=== PATIENT | male | born 1990 | race Caucasian/White ===

== ENCOUNTER 2017-09-11 12:08 | Emergency (ER) | payer SELFPAY ==
[~2017-09-11] VITALS: Ht 182.9 cm; Wt 93.8 kg
[2017-09-11 12:10] VITALS: BP 139/92; PULSE 70; RESP 20; TEMP 97.7; O2SAT 100
[2017-09-11] MEDS ORDERED: MORP1CAP64 PO (12:28)
[2017-09-11] MEDS ORDERED: SODIUM CHLOR 0.9% 1000 ML INJ 1,000 ML IV SCH (12:31)
--- NOTE | 2017-09-11 12:33 | PD ---
HPI Chief Complaint: Abdominal Pain Time Seen by Provider: 12:21 Travel History International Travel<30 days: No Contact w/Intl Traveler<30days: No Traveled to known affect area: No History of Present Illness HPI This is a 27-year-old male who presents to the emergency department with acute onset epigastric abdominal pain, sharp and stabbing this morning at 9:30 AM, nonradiating, severe. He denies any associated nausea, vomiting, fevers, chills or diarrhea. He has never had pain like this before. He tried to eat but it made it worse. He took 2 Gas-X which did not improve the pain. He denies any alcohol use. He does smoke marijuana and he takes 60 mg extended release morphine twice a day for chronic back pain. He did take his morphine this morning. He has never had pain like this before. He has never had abdominal surgery. PFSH Past Medical History Diminished Hearing: No Musculoskeletal: Yes (Slipped discs ) Tetanus Vaccination: Unknown Influenza Vaccination: No ?: Not Past Surgical History Tonsillectomy: Yes Social History Alcohol Use: No Tobacco Use: Yes (2 05/15 PPD) Substance Use: Yes (Marijuana) Allergies-Medications (Allergen,Severity, Reaction): Coded Allergies: No Known Allergies (Unverified , 09/11/17) Reported Meds & Prescriptions Reported Meds & Active Scripts Active Reported Morphine ER 24 HR (Morphine Sulfate) 60 Mg Caper 60 Mg PO DAILY Review of Systems Except as stated in HPI: all other systems reviewed are Neg Physical Exam Narrative GENERAL: Uncomfortable appearing. SKIN: Focused skin assessment warm and dry. HEAD: Atraumatic. Normocephalic. EYES: Pupils equal and round. No injection or drainage. ENT: Moist mucous membranes NECK: Trachea midline. CARDIOVASCULAR: Regular rate and rhythm. No murmur appreciated. RESPIRATORY: Clear to auscultation. Breath sounds equal bilaterally. GASTROINTESTINAL: Abdomen soft, tender to palpation in the epigastrium, right upper quadrant and left upper quadrant with no rebound or guarding. MUSCULOSKELETAL: No obvious deformities. NEUROLOGICAL: Awake and alert. No obvious cranial nerve deficits. Moving all extremities. PSYCHIATRIC: Appropriate mood and affect; insight and judgment normal. Data Data Last Documented VS Vital Signs Date Time Temp Pulse Resp B/P (MAP) Pulse Ox O2 Delivery O2 Flow Rate FiO2 09/11/17 13:20 78 133/78 (96) 98 09/11/17 12:10 97.7 20 Orders Orders Complete Blood Count With Diff (09/11/17 12:31) Comprehensive Metabolic Panel (09/11/17 12:31) Lipase (09/11/17 12:31) Ct Abd/Pel W Iv Contrast(Rout) (09/11/17 12:31) Iv Access Insert/Monitor (09/11/17 12:31) Ecg Monitoring (09/11/17 12:31) Oximetry (09/11/17 12:31) Ondansetron Inj (Zofran Inj) (09/11/17 12:45) Sodium Chlor 0.9% 1000 Ml Inj (Ns 1000 M (09/11/17 12:31) Sodium Chloride 0.9% Flush (Ns Flush) (09/11/17 12:45) Hydromorphone Pf Inj (Dilaudid Pf Inj) (09/11/17 12:45) Al-Mag Hy-Si 40-40-4 Mg/Ml Liq (Mag-Al P (09/11/17 12:45) Lidocaine 2% Viscous (Xylocaine 2% Visco (09/11/17 12:45) Hydromorphone Pf Inj (Dilaudid Pf Inj) (09/11/17 12:45) Iohexol 350 Inj (Omnipaque 350 Inj) (09/11/17 13:02) Us Abdomen Gallbladder (09/11/17 ) Ketorolac Inj (Toradol Inj) (09/11/17 14:00) Hydromorphone Pf Inj (Dilaudid Pf Inj) (09/11/17 14:00) Hydromorphone Pf Inj (Dilaudid Pf Inj) (09/11/17 14:15) Labs Laboratory Tests Test 09/11/17 12:53 White Blood Count 11.6 TH/MM3 Red Blood Count 5.14 MIL/MM3 Hemoglobin 15.7 GM/DL Hematocrit 46.9 % Mean Corpuscular Volume 91.3 FL Mean Corpuscular Hemoglobin 30.5 PG Mean Corpuscular Hemoglobin Concent 33.4 % Red Cell Distribution Width 12.1 % Platelet Count 208 TH/MM3 Mean Platelet Volume 10.5 FL Neutrophils (%) (Auto) 65.6 % Lymphocytes (%) (Auto) 25.3 % Monocytes (%) (Auto) 5.7 % Eosinophils (%) (Auto) 3.1 % Basophils (%) (Auto) 0.3 % Neutrophils # (Auto) 7.6 TH/MM3 Lymphocytes # (Auto) 2.9 TH/MM3 Monocytes # (Auto) 0.7 TH/MM3 Eosinophils # (Auto) 0.4 TH/MM3 Basophils # (Auto) 0.0 TH/MM3 CBC Comment DIFF FINAL Differential Comment Blood Urea Nitrogen 15 MG/DL Creatinine 1.00 MG/DL Random Glucose 85 MG/DL Total Protein 7.8 GM/DL Albumin 4.1 GM/DL Calcium Level 9.2 MG/DL Alkaline Phosphatase 81 U/L Aspartate Amino Transf (AST/SGOT) 13 U/L Alanine Aminotransferase (ALT/SGPT) 27 U/L Total Bilirubin 1.7 MG/DL Sodium Level 138 MEQ/L Potassium Level 3.6 MEQ/L Chloride Level 103 MEQ/L Carbon Dioxide Level 27.9 MEQ/L Anion Gap 7 MEQ/L Estimat Glomerular Filtration Rate 88 ML/MIN Lipase 50 U/L MDM Medical Decision Making Medical Screen Exam Complete: Yes Emergency Medical Condition: Yes Interpretation(s) Afebrile, no tachycardia, mild hypertension Mild leukocytosis Total bilirubin is 1.7 Lipase is 50 Differential Diagnosis Peptic ulcer disease, perforated ulcer, choledocholithiasis, cholelithiasis, cyclic vomiting syndrome Narrative Course This is a 27-year-old male who presents to the emergency department with severe abrupt onset abdominal pain mostly in the upper abdomen. He has never had pain like this before. Labs demonstrate a total bilirubin of 1.7. Lipase is normal and CT abdomen pelvis and ultrasound are unrevealing. Patient was given pain control, IV fluids and antiemetics. He was reevaluated several times. Given the abrupt onset of the pain, it is worsening with eating, and the elevated total bilirubin I suspect the patient may have passed a biliary stone. Patient feels much better after pain control. He will be discharged home. Diagnosis Primary Impression: Abdominal pain Qualified Codes: R10.11 - Right upper quadrant pain Patient Instructions: General Instructions Additional Instructions: If you develop severe or worsening abdominal pain, fever>100.4, persistent vomiting or inability to eat or drink return to the emergency department immediately. Follow up with your primary care physician in 1-2 days for a check-up. Med/Other Pt SpecificInfo: Prescription(s) given Scripts Naproxen (Naproxen) 500 Mg Tab 500 MG PO BID Y for PAIN SCALE 4 TO 10, #20 TAB 0 Refills Prov: Azalea Serna MD 09/11/17 Disposition: 01 DISCHARGE HOME Condition: Stable Azalea Serna MD September 11, 2017 12:33
[2017-09-11] MEDS ORDERED: HYDROmorphone HCL PF 1 MG/ML VIAL IVS ONE (12:45)
[2017-09-11] MEDS ORDERED: HYDROmorphone HCL PF 2 MG/ML VIAL IV PUSH ONE ×2 (12:45→14:15)
[2017-09-11] MEDS ORDERED: LIDOCAINE VISCOUS 2% SOLN 15 ML UDC PO ONE (12:45)
[2017-09-11] MEDS ORDERED: SODIUM CHLORIDE 0.9% FLUSH 10 ML FLUSH IV FLUSH PRN (12:45)
[2017-09-11] MEDS ORDERED: ALUMINUM/MAGNESIUM/SIMETH 30 ML CUP PO ONE (12:45)
[2017-09-11] MEDS ORDERED: ONDANSETRON HCL 4 MG/2 ML VIAL IVP ONE (12:45)
[2017-09-11 12:53] VITALS: O2SAT 98
[2017-09-11 12:59] LABS: AUTOMATED NEUTROPHIL # 7.6 TH/MM3 (1.8-7.7); BASOPHIL % 0.3 % (0.0-2.0); EOSINOPHIL # 0.4 TH/MM3 (0-0.4); EOSINOPHIL % 3.1 % (0.0-4.0); HEMATOCRIT 46.9 % (39.0-51.0); HEMOGLOBIN 15.7 GM/DL (13.0-17.0); LYMPH % 25.3 % (9.0-44.0); LYMPHOCYTE # 2.9 TH/MM3 (1.0-4.8); MEAN CELL VOLUME 91.3 FL (80.0-100.0); MEAN CORPUSCULAR HEMOGLOBIN 30.5 PG (27.0-34.0); MEAN CORPUSCULAR HGB CONC 33.4 % (32.0-36.0); MEAN PLATELET VOLUME 10.5 FL (7.0-11.0); MONO % 5.7 % (0.0-8.0); MONOCYTE # 0.7 TH/MM3 (0-0.9); NEUT % 65.6 % (16.0-70.0); PLATELET COUNT 208 TH/MM3 (150-450); RED BLOOD COUNT 5.14 MIL/MM3 (4.50-5.90); RED CELL DISTRIBUTION WIDTH 12.1 % (11.6-17.2); WHITE BLOOD COUNT 11.6 TH/MM3 (4.0-11.0)
[2017-09-11] MEDS ORDERED: IOHEXOL 350 MG/ML 10 ML VIAL (for RAD DIAG) IVCONTRAST ONE (13:02)
[2017-09-11 13:08] LABS: CHLORIDE 103 MEQ/L (98-107); SODIUM (NA) 138 MEQ/L (136-145)
[2017-09-11 13:12] LABS: ALBUMIN 4.1 GM/DL (3.4-5.0); BICARBONATE 27.9 MEQ/L (21.0-32.0); BLOOD UREA NITROGEN 15 MG/DL (7-18); CALCIUM 9.2 MG/DL (8.5-10.1); GLUCOSE,RANDOM 85 MG/DL (74-106)
[2017-09-11 13:15] LABS: ALT (GPT) 27 U/L (12-78); AST (GOT) 13 U/L (15-37); GLOMERULAR FILTRATION RATE 88 ML/MIN (>89)
[2017-09-11 13:17] LABS: TOTAL BILIRUBIN ADULT 1.7 MG/DL (0.2-1.0); TOTAL PROTEIN 7.8 GM/DL (6.4-8.2)
[2017-09-11 13:18] LABS: ALKALINE PHOSPHATASE 81 U/L (45-117)
[2017-09-11 13:20] VITALS: BP 133/78; PULSE 78; O2SAT 98
--- NOTE | 2017-09-11 13:34 | RADRPT ---
EXAM DATE/TIME: 09/11/2017 12:56 [facility] COMPARISON: No previous studies available for comparison. INDICATIONS : Mid abdominal pain. IV CONTRAST: 95 cc Omnipaque 350 (iohexol) IV ORAL CONTRAST: No oral contrast ingested. RADIATION DOSE: 18.25 CTDIvol (mGy) MEDICAL HISTORY : None SURGICAL HISTORY : None. ENCOUNTER: Initial ACUITY: 1 day PAIN SCALE: 8/10 LOCATION: middle TECHNIQUE: Volumetric scanning of the abdomen and pelvis was performed. Using automated exposure control and ad justment of the mA and/or kV according to patient size, radiation dose was kept as low as reasonably achievable to obtain optimal diagnostic quality images. DICOM format image data is available electro nically for review and comparison. FINDINGS: LOWER LUNGS: The visualized lower lungs are clear. LIVER: Homogeneous density without lesion. There is no dilation of the biliary tree. No calcified gallston es. SPLEEN: Normal size without lesion. PANCREAS: Within normal limits. KIDNEYS: Normal in size and shape. There is no mass, stone or hydronephrosis. ADRENAL GLANDS: Within normal limits. VASCULAR: There is no aortic aneurysm. BOWEL/MESENTERY: The stomach, small bowel, and colon demonstrate no acute abnormality. There is no free intraperitone al air or fluid. ABDOMINAL WALL: Within normal limits. RETROPERITONEUM: There is no lymphadenopathy. BLADDER: No wall thickening or mass. REPRODUCTIVE: Within normal limits. INGUINAL: There is no lymphadenopathy or hernia. MUSCULOSKELETAL: Within normal limits for patient age. CONCLUSION: 1. Negative CT abdomen/pelvis with contrast. Stuart Mckenna MD on September 11, 2017 at 13:30 Board Certified Radiologist. This report was verified electronically.
[2017-09-11] MEDS ORDERED: KETOROLAC TROMETHAMINE 30 MG/ML (IVP) VIAL IV PUSH ONE (14:00)
[2017-09-11] MEDS ORDERED: HYDROmorphone HCL PF 1 MG/ML VIAL IV PUSH ONE (14:00)
--- NOTE | 2017-09-11 14:31 | RADRPT ---
EXAM DATE/TIME: 09/11/2017 13:52 [facility] COMPARISON: CT ABDOMEN & PELVIS W CONTRAST, September 11, 2017, 12:56. INDICATIONS : Evaluate common bile duct. MEDICAL HISTORY : Slipped discs. Substance use. Tobacco use. SURGICAL HISTORY : Tonsillectomy. ENCOUNTER: Initial ACUITY: 1 day PAIN SCORE: 7/10 LOCATION: Right upper quadrant MEASUREMENTS: LIVER: 16.3 cm length COMMON DUCT: 5 mm RIGHT KIDNEY: 11.5 x 5.8 x 4.9 cm FINDINGS: LIVER: Normal echotexture without focal lesion or ductal dilatation. COMMON DUCT: No intraluminal mass or stone visualized. GALLBLADDER: Contains no stones, demonstrates no wall thickening or pericholecystic fluid. Sonographic Horowitz sig n is negative. PANCREAS: The visualized portions are within normal limits. Portions are obscured secondary to bowel gas. RIGHT KIDNEY: No evidence of hydronephrosis, stone, or mass. CONCLUSION: 1. Common bile duct is within normal limits. 2. The remainder of the examination demonstrates no acute finding. Uri Sparks MD on September 11, 2017 at 14:27 Board Certified Radiologist. This report was verified electronically.
[2017-09-11] MEDS ORDERED: NAPR500T2 PO (14:46)
== END 2017-09-11 14:53 | disposition home or self-care (01) ==
LOC: PHED 12:08
DX: R10.11 Right upper quadrant pain (principal); I10 Essential (primary) hypertension; D72.829 Elevated white blood cell count, unspecified; F12.10 Cannabis abuse, uncomplicated; F17.200 Nicotine dependence, unspecified, uncomplicated
CPT/HCPCS: 74177; 76705; 80053; 83690; 85025; 96361; 96374; 96375; 96376; 99284; J1170; J1885; J2405; J7030; Q9967

== ENCOUNTER 2017-10-10 20:27 | Emergency (ER) | payer SELFPAY ==
[~2017-10-10] VITALS: Ht 182.9 cm; Wt 95.0 kg
[~2017-10-10 20:27] MED LIST: MORP1CAP64 PO; NAPR500T2 PO
[2017-10-10 20:59] VITALS: BP 125/65; PULSE 91; RESP 16; TEMP 98.1; O2SAT 99
[2017-10-10] MEDS ORDERED: CEPH-460 PO (21:15)
[2017-10-10] MEDS ORDERED: BACT800T5 PO (21:15)
--- NOTE | 2017-10-10 21:18 | PD ---
HPI Chief Complaint: Edema Time Seen by Provider: 21:05 Travel History International Travel<30 days: No Contact w/Intl Traveler<30days: No Traveled to known affect area: No History of Present Illness HPI Patient comes emergency department requesting antibiotic for possible infected bug bite his right ankle. Patient states that he first noticed what he believes to be a mosquito bite yesterday. States that both performed and then popped causing a burning sensation around the site. Patient reports he tried scrubbing it when he was in the shower and taking a dose of penicillin with no improvement of symptoms. Patient states that he was cleaning out the garage wearing sandals which he believes caused the bites to occur. Patient denies any pain with walking, but pain is worse to palpation and radiates proximally. Denies any fevers or pruritus. He states that he noticed both of his ankles been swelling and felt this was secondary to being on his feet a lot recently. PFSH Past Medical History Diminished Hearing: No Musculoskeletal: Yes (Slipped discs ) Past Surgical History Tonsillectomy: Yes Social History Alcohol Use: No Tobacco Use: Yes (2 05/15 PPD) Substance Use: Yes (Marijuana) Allergies-Medications (Allergen,Severity, Reaction): Coded Allergies: No Known Allergies (Unverified , 09/11/17) Reported Meds & Prescriptions Reported Meds & Active Scripts Active Keflex (Cephalexin) 500 Mg Cap 500 Mg PO Q8H Bactrim DS (Sulfamethoxazole-Trimethoprim) 800-160 Mg Tab 1 Tab PO BID Naproxen 500 Mg Tab 500 Mg PO BID PRN Reported Morphine ER 24 HR (Morphine Sulfate) 60 Mg Caper 60 Mg PO DAILY Review of Systems Except as stated in HPI: all other systems reviewed are Neg Physical Exam Narrative GENERAL: Well-developed, overly nourished, in no acute distress, and non-ill appearing. SKIN: Patient has a small scabbed over lesion over the medial aspect of his distal lower leg. There is mild erythematous surrounding it. It is mildly tender to palpation. There is no crepitus, drainage, induration, or fluctuation. HEAD: Atraumatic. Normocephalic. EYES: Pupils equal and round. EOMI. No scleral icterus. No injection or drainage. ENT: No nasal bleeding or discharge. Mucous membranes pink and moist. NECK: Trachea midline. Supple. No nuclear rigidity. CARDIOVASCULAR: Dorsal pulses 2+, intact, and equal bilaterally. Capillary refill less than 2 seconds. RESPIRATORY: No accessory muscle use. No respiratory distress. MUSCULOSKELETAL: No obvious deformities. No clubbing. No cyanosis. Trace edema bilateral lower extremities. Full range of motion. Negative Homans sign. NEUROLOGICAL: Awake and alert. No obvious cranial nerve deficits. Motor grossly within normal limits. Normal speech. PSYCHIATRIC: Appropriate mood and affect; insight and judgment normal. Data Data Last Documented VS Vital Signs Date Time Temp Pulse Resp B/P (MAP) Pulse Ox O2 Delivery O2 Flow Rate FiO2 10/10/17 21:05 16 10/10/17 20:59 98.1 91 125/65 (85) 99 Orders Orders Ed Discharge Order (10/10/17 21:19) Tetanus/Diphtheria Tox Adult (Tetanus/Di (10/10/17 21:30) MDM Medical Decision Making Medical Screen Exam Complete: Yes Emergency Medical Condition: Yes Differential Diagnosis Abscess, cellulitis, infected bug bite, gout, pseudogout, impetigo Narrative Course There is no evidence of necrotizing fasciitis at this time, pain is proportional and no crepitus is noted. There is no evidence of abscess as well at this time. The patient will be discharged on antibiotics. The patient was given signs and symptoms warnings for worsening infection, such as spreading of redness, increasing pain, and/or swelling, associated heat, or fever and instructed to return immediately if these signs or symptoms worsen. The patient is to follow up with physician in 2 days for recheck or return here in 2 days for recheck if unable to establish outpatient follow up. Sooner if worsens or as needed. The patient agrees with plan. Patient in no obvious distress upon re-evaluation. Discussed patient with Dr. Loredo prior discharge, who is in agreement plan of care and disposition. Patient was asked if they wanted to speak to my attending, which the patient did not wish to do at this time. Any questions/concerns in reference to patient diagnosis/condition discussed and clarified prior to patient's discharge. Reinforced sheer importance of close follow up with patient's primary physician or primary care clinic. Instructed patient to return to ED immediately, if symptoms return/worsen. Patient showed understanding of above instructions. Further instructions and recommendations were detailed in discharge paperwork. Patient ambulated without difficulty out of ED at discharge. Diagnosis Primary Impression: Infected insect bite Qualified Codes: W57.XXXA - Bitten or stung by nonvenomous insect and other nonvenomous arthropods, initial encounter Referrals: [facility] Patient Instructions: Cellulitis (ED), General Instructions, Insect Bite or Sting (ED) Additional Instructions: Follow-up with your primary care physician or return here in 2 days for recheck. Take all medication as prescribed. Return to the emergency department sooner if symptoms get worse. Med/Other Pt SpecificInfo: Prescription(s) given Scripts Cephalexin (Keflex) 500 Mg Cap 500 MG PO Q8H for Infection, #30 CAP 0 Refills Prov: Grabiel Loredo MD 10/10/17 Sulfamethoxazole-Trimethoprim (Bactrim DS) 800-160 Mg Tab 1 TAB PO BID for Infection, #20 TAB 0 Refills Prov: Grabiel Loredo MD 10/10/17 Disposition: 01 DISCHARGE HOME Condition: Stable Cedrick Stevens October 10, 2017 21:18
[2017-10-10] MEDS ORDERED: TETANUS/DIPHTHERIA TOXOID ADULT 0.5 ML VIAL IM ONE (21:30)
== END 2017-10-10 21:35 | disposition home or self-care (01) ==
LOC: NEPE 20:27
DX: S90.561A Insect bite (nonvenomous), right ankle, initial encounter (principal); W57.XXXA Bitten or stung by nonvenomous insect and other nonvenomous arthropods, initial encounter; Z23 Encounter for immunization
CPT/HCPCS: 90471; 90714

== ENCOUNTER 2017-10-22 17:11 | Emergency (ER) | payer SELFPAY ==
[2017-10-22 17:11] VITALS: BP 129/82; PULSE 70; RESP 16; TEMP 97.6; O2SAT 98
[~2017-10-22 17:11] MED LIST changes: +BACT800T5 PO; +CEPH-460 PO
[2017-10-22] MEDS ORDERED: IOHEXOL 350 MG/ML 10 ML VIAL (for RAD DIAG) IVCONTRAST ONE (17:12)
[2017-10-22] MEDS ORDERED: SODIUM CHLOR 0.9% 1000 ML INJ 1,000 ML IV SCH (17:24)
--- NOTE | 2017-10-22 17:27 | PD ---
HPI Chief Complaint: GI Complaint Time Seen by Provider: 17:16 Travel History International Travel<30 days: No Contact w/Intl Traveler<30days: No Traveled to known affect area: No History of Present Illness HPI Patient 27-year-old male presents emergency department for 2 day history of nausea vomiting diarrhea and abdominal cramping. Patient states that he is having abdominal cramping only after vomiting. States symptoms are getting to the point where he is feeling very thirsty and dehydrated. States his been passing yellow diarrhea and vomiting only food and p.o. liquid. He denies any hematemesis any bilious emesis, denies any blood in the stool or melanotic stools. Review of his records shows that he was here for an infected mosquito bite recently and was put on Bactrim and Keflex. He has been taking his medicines. He denies any abdominal pain chest pain shortness of breath. PFSH Past Medical History Diminished Hearing: No Musculoskeletal: Yes (Slipped discs ) Tetanus Vaccination: < 5 Years Influenza Vaccination: No Past Surgical History Tonsillectomy: Yes Social History Alcohol Use: No Tobacco Use: Yes (1 PPD) Substance Use: Yes (Marijuana) Allergies-Medications (Allergen,Severity, Reaction): Coded Allergies: No Known Allergies (Unverified , 10/22/17) Reported Meds & Prescriptions Reported Meds & Active Scripts Active Phenergan Supp (Promethazine HCl) 25 Mg Supp 25 Mg RECTAL Q6H PRN Bentyl (Dicyclomine HCl) 10 Mg Cap 10 Mg PO TID PRN Zofran Odt (Ondansetron Odt) 4 Mg Tab 4 Mg SL Q6HR PRN Flagyl (Metronidazole) 500 Mg Tab 500 Mg PO BID 10 Days Reported Morphine ER 24 HR (Morphine Sulfate) 60 Mg Caper 60 Mg PO DAILY Review of Systems Except as stated in HPI: all other systems reviewed are Neg Physical Exam Narrative GENERAL: Well-developed, well-nourished, anxious patient. He appears nontoxic. SKIN: Focused skin assessment warm/dry. Normal skin turgor HEAD: Atraumatic. Normocephalic. EYES: Pupils equal and round. No scleral icterus. No injection or drainage. ENT: No nasal bleeding or discharge. Mucous membranes pink and moist. NECK: Trachea midline. No JVD. CARDIOVASCULAR: Regular rate and rhythm. No murmur appreciated. RESPIRATORY: No accessory muscle use. Breath sounds equal bilaterally. Mild end expiratory wheezing bilaterally. GASTROINTESTINAL: Abdomen soft, non-tender, nondistended. Hepatic and splenic margins not palpable. No rebound no percussive tenderness, no CVA tenderness. MUSCULOSKELETAL: No obvious deformities. No clubbing. No cyanosis. No edema. NEUROLOGICAL: Awake and alert. No obvious cranial nerve deficits. Motor grossly within normal limits. Normal speech. PSYCHIATRIC: Appropriate mood and affect; insight and judgment normal. Data Data Last Documented VS Vital Signs Date Time Temp Pulse Resp B/P (MAP) Pulse Ox O2 Delivery O2 Flow Rate FiO2 10/22/17 19:43 10/22/17 19:37 86 16 99 Room Air 10/22/17 17:11 97.6 Orders Orders Complete Blood Count With Diff (10/22/17 17:24) Comprehensive Metabolic Panel (10/22/17 17:24) Lipase (10/22/17 17:24) Iv Access Insert/Monitor (10/22/17 17:24) Ecg Monitoring (10/22/17 17:24) Oximetry (10/22/17 17:24) Sodium Chlor 0.9% 1000 Ml Inj (Ns 1000 M (10/22/17 17:24) Sodium Chloride 0.9% Flush (Ns Flush) (10/22/17 17:30) Dicyclomine Inj (Bentyl Inj) (10/22/17 17:30) Ondansetron Odt (Zofran Odt) (10/22/17 17:30) Ct Abd/Pel W Iv Contrast(Rout) (10/22/17 ) Promethazine Inj (Phenergan Inj) (10/22/17 18:00) Iohexol 350 Inj (Omnipaque 350 Inj) (10/22/17 17:12) Ketorolac Inj (Toradol Inj) (10/22/17 18:45) Ed Discharge Order (10/22/17 19:37) Labs Laboratory Tests Test 10/22/17 17:30 White Blood Count 18.2 TH/MM3 Red Blood Count 5.48 MIL/MM3 Hemoglobin 17.4 GM/DL Hematocrit 50.7 % Mean Corpuscular Volume 92.5 FL Mean Corpuscular Hemoglobin 31.8 PG Mean Corpuscular Hemoglobin Concent 34.4 % Red Cell Distribution Width 11.8 % Platelet Count 211 TH/MM3 Mean Platelet Volume 10.5 FL Neutrophils (%) (Auto) 90.0 % Lymphocytes (%) (Auto) 6.2 % Monocytes (%) (Auto) 1.2 % Eosinophils (%) (Auto) 0.1 % Basophils (%) (Auto) 2.5 % Neutrophils # (Auto) 16.4 TH/MM3 Lymphocytes # (Auto) 1.1 TH/MM3 Monocytes # (Auto) 0.2 TH/MM3 Eosinophils # (Auto) 0.0 TH/MM3 Basophils # (Auto) 0.5 TH/MM3 CBC Comment DIFF FINAL Differential Comment Blood Urea Nitrogen 17 MG/DL Creatinine 1.30 MG/DL Random Glucose 107 MG/DL Total Protein 8.9 GM/DL Albumin 4.7 GM/DL Calcium Level 9.8 MG/DL Alkaline Phosphatase 85 U/L Aspartate Amino Transf (AST/SGOT) 13 U/L Alanine Aminotransferase (ALT/SGPT) 26 U/L Total Bilirubin 1.1 MG/DL Sodium Level 139 MEQ/L Potassium Level 4.0 MEQ/L Chloride Level 105 MEQ/L Carbon Dioxide Level 24.6 MEQ/L Anion Gap 9 MEQ/L Estimat Glomerular Filtration Rate 65 ML/MIN Lipase 57 U/L MDM Medical Decision Making Medical Screen Exam Complete: Yes Emergency Medical Condition: Yes Differential Diagnosis Dehydration, colitis, gastritis, gastroenteritis, acute abdomen seems unlikely, C. difficile colitis is possible, Sirs, sepsis. Narrative Course Patient room to the emergency department, he appears uncomfortable but his abdomen is fairly benign. He does have an 18,000 white count which provoked a CAT scan using a high index of suspicion. CT abdomen pelvis was unremarkable. Patient was given Toradol as now he is complaining of abdominal pain states now that his abdominal pain was actually worse and his nausea contradicting is he is calm and cooperative and appears much more comfortable now after Toradol. He is resting comfortably after Phenergan. Discussed that the remainder of his labs look well and this could be antibiotic related colitis and I recommend a course of Flagyl and follow-up with a primary care physician or [facility]. He verbalized understanding and agreement was able to ambulate from the emergency department in no distress. Diagnosis Primary Impression: Abdominal pain Additional Impression: Diarrhea Referrals: [facility] Patient Instructions: Acute Diarrhea (GEN), Acute Nausea and Vomiting (DC), General Instructions Additional Instructions: Follow up with the [facility] or your regular physician. Med/Other Pt SpecificInfo: Prescription(s) given Scripts Promethazine Supp (Phenergan Supp) 25 Mg Supp 25 MG RECTAL Q6H Y for NAUSEA OR VOMITING, #20 SUPP 0 Refills Prov: Adin Dial MD 10/22/17 Dicyclomine (Bentyl) 10 Mg Cap 10 MG PO TID Y for ABDOMINAL CRAMPING, #20 CAP 0 Refills Prov: Adin Dial MD 10/22/17 Ondansetron Odt (Zofran Odt) 4 Mg Tab 4 MG SL Q6HR Y for Nausea/Vomiting, #30 TAB 0 Refills Prov: Adin Dial MD 10/22/17 Metronidazole (Flagyl) 500 Mg Tab 500 MG PO BID for Infection for 10 Days, #20 TAB 0 Refills Prov: Adin Dial MD 10/22/17 Disposition: 01 DISCHARGE HOME Condition: Stable Adin Dial MD Oct 22, 2017 17:27
[2017-10-22 17:29] VITALS: O2SAT 100
[2017-10-22] MEDS ORDERED: DICYCLOMINE HCL 20 MG/2 ML VIAL IM ONE (17:30)
[2017-10-22] MEDS ORDERED: SODIUM CHLORIDE 0.9% FLUSH 10 ML FLUSH IV FLUSH PRN (17:30)
[2017-10-22] MEDS ORDERED: ONDANSETRON ODT 4 MG TAB PO ONE (17:30)
[2017-10-22 17:46] LABS: AUTOMATED NEUTROPHIL # 16.4 TH/MM3 (1.8-7.7); BASOPHIL # 0.5 TH/MM3 (0-0.2); BASOPHIL % 2.5 % (0.0-2.0); EOSINOPHIL % 0.1 % (0.0-4.0); HEMATOCRIT 50.7 % (39.0-51.0); HEMOGLOBIN 17.4 GM/DL (13.0-17.0); LYMPH % 6.2 % (9.0-44.0); LYMPHOCYTE # 1.1 TH/MM3 (1.0-4.8); MEAN CELL VOLUME 92.5 FL (80.0-100.0); MEAN CORPUSCULAR HEMOGLOBIN 31.8 PG (27.0-34.0); MEAN CORPUSCULAR HGB CONC 34.4 % (32.0-36.0); MEAN PLATELET VOLUME 10.5 FL (7.0-11.0); MONO % 1.2 % (0.0-8.0); MONOCYTE # 0.2 TH/MM3 (0-0.9); PLATELET COUNT 211 TH/MM3 (150-450); RED BLOOD COUNT 5.48 MIL/MM3 (4.50-5.90); RED CELL DISTRIBUTION WIDTH 11.8 % (11.6-17.2); WHITE BLOOD COUNT 18.2 TH/MM3 (4.0-11.0)
[2017-10-22] MEDS ORDERED: PROMETHAZINE INJ 25 MG/ML VIAL IM ONE (18:00)
[2017-10-22 18:15] LABS: CHLORIDE 105 MEQ/L (98-107); SODIUM (NA) 139 MEQ/L (136-145)
[2017-10-22 18:18] LABS: CALCIUM 9.8 MG/DL (8.5-10.1)
[2017-10-22 18:19] LABS: ALBUMIN 4.7 GM/DL (3.4-5.0); BICARBONATE 24.6 MEQ/L (21.0-32.0); GLUCOSE,RANDOM 107 MG/DL (74-106)
[2017-10-22 18:20] LABS: BLOOD UREA NITROGEN 17 MG/DL (7-18)
[2017-10-22 18:22] LABS: ALT (GPT) 26 U/L (12-78); AST (GOT) 13 U/L (15-37); GLOMERULAR FILTRATION RATE 65 ML/MIN (>89)
[2017-10-22 18:23] LABS: TOTAL BILIRUBIN ADULT 1.1 MG/DL (0.2-1.0); TOTAL PROTEIN 8.9 GM/DL (6.4-8.2)
[2017-10-22 18:24] LABS: ALKALINE PHOSPHATASE 85 U/L (45-117)
[2017-10-22 18:27] VITALS: BP 161/83; PULSE 89; RESP 16; O2SAT 100
--- NOTE | 2017-10-22 18:29 | RADRPT ---
EXAM DATE: 10/22/2017 6:21 PM EDT AGE/SEX: 27 years / Male INDICATIONS: Diffuse abdomen pain with nausea, vomiting and diarrhea for two days. CLINICAL DATA: This is the patient's initial encounter. Patient reports that signs and symptoms have been present for 2 days and indicates a pain score of 7/10. MEDICAL/SURGICAL HISTORY: None. Tonsillectomy. ORAL CONTRAST: No oral contrast ingested. RADIATION DOSE: 12.67 CTDI (mGy) COMPARISON: [facility], CT ABDOMEN & PELVIS W CONTRAST, 09/11/2017. . TECHNIQUE: Multiple contiguous axial images were obtained through the abdomen and pelvis following b olus infusion of 94 ml Omnipaque 350 (iohexol) nonionic water-soluble contrast as a single exam dos e. No oral contrast ingested. Using automated exposure control and adjustment of the mA and/or kV ac cording to patient size, the radiation dose was kept as low as reasonably achievable to obtain optima l diagnostic quality images. FINDINGS: Abdomen CT: The liver, spleen, pancreas, kidneys, adrenals are unremarkable. There is no evidence for any appreci able pathological adenopathy, free fluid, or bowel obstruction. Pelvic CT: There is no evidence for mass, abscess formation, or any significant adenopathy within the pelvis. Th ere are small lymph nodes in bilateral groin the largest measures almost 1.4 cm in size on the left s myranda benign in appearance. The appendix appears intact. CONCLUSION: Essentially unremarkable study and not changed. Electronically signed by: Juan Yeager MD 10/22/2017 6:28 PM EDT
[2017-10-22] MEDS ORDERED: METR-1 PO (18:37)
[2017-10-22] MEDS ORDERED: ZOFR4TAB3 SL (18:37)
[2017-10-22] MEDS ORDERED: DICY10 PO (18:37)
[2017-10-22] MEDS ORDERED: KETOROLAC TROMETHAMINE 30 MG/ML (IVP) VIAL IV PUSH ONE (18:45)
[2017-10-22] MEDS ORDERED: PROM1SUP7 RECTAL (19:36)
[2017-10-22 19:37] VITALS: BP 122/62; PULSE 86; RESP 16; O2SAT 99
== END 2017-10-22 19:44 | disposition home or self-care (01) ==
LOC: PHED 17:11
DX: R11.2 Nausea with vomiting, unspecified (principal); R10.9 Unspecified abdominal pain; R19.7 Diarrhea, unspecified; F17.200 Nicotine dependence, unspecified, uncomplicated; F12.90 Cannabis use, unspecified, uncomplicated; Z79.899 Other long term (current) drug therapy
CPT/HCPCS: 74177; 80053; 83690; 85025; 96361; 96372; 96374; 99284; J0500; J1885; J2550; J7030; Q9967